=== PATIENT | male | born 1965 | race African-American/Black ===

== ENCOUNTER 2018-05-15 14:58 | Emergency (ER) | payer SELFPAY ==
[~2018-05-15] VITALS: Ht 170.2 cm; Wt 79.2 kg
[2018-05-15] MEDS ORDERED: ULTRAM50 M1 PO (17:21)
[2018-05-15] MEDS ORDERED: FLEXERIL PO (17:21)
[2018-05-15 17:24] VITALS: BP 149/89
== END 2018-05-15 17:32 | disposition home or self-care (01) | DRG 552 ==
LOC: ED 14:58
DX: M51.9 Unspecified thoracic, thoracolumbar and lumbosacral intervertebral disc disorder (principal); F17.210 Nicotine dependence, cigarettes, uncomplicated

== ENCOUNTER 2018-10-08 12:25 | Emergency (ER) | payer SELFPAY ==
[~2018-10-08] VITALS: Ht 170.2 cm; Wt 85.0 kg
[~2018-10-08 12:25] MED LIST: FLEXERIL PO; ULTRAM50 M1 PO
[2018-10-08 13:31] LABS: URINE BILIRUBIN - DIPSTICK NEGATIVE (NEGATIVE); URINE BLOOD DIPSTICK LARGE (NEGATIVE); URINE COLOR YELLOW; URINE GLUCOSE - DIPSTICK NEGATIVE (NEGATIVE); URINE KETONE NEGATIVE (NEGATIVE); URINE LEUK ESTERASE NEGATIVE (NEGATIVE); URINE NITRITE - DIPSTICK NEGATIVE (Negative); URINE PROTEIN - DIPSTICK NEGATIVE (NEG-TRACE); URINE UROBILINOGEN - DIPSTICK 0.2 E.U./dL (0.2)
[2018-10-08 13:52] VITALS: BP 154/106
== END 2018-10-08 13:52 | disposition home or self-care (01) | DRG 696 ==
LOC: ED 12:25
PROVIDERS: Family Medicine
DX: R31.9 Hematuria, unspecified (principal); F17.210 Nicotine dependence, cigarettes, uncomplicated

== ENCOUNTER 2019-04-15 10:25 | Emergency (ER) | payer BC ==
[~2019-04-15] VITALS: Ht 170.2 cm; Wt 90.0 kg
[2019-04-15] MEDS ORDERED: CYCLOBENZAPR5 MG PO (11:05)
[2019-04-15 11:11] VITALS: BP 136/88
== END 2019-04-15 11:18 | disposition home or self-care (01) | DRG 563 ==
LOC: ED 10:25
DX: S39.012A Strain of muscle, fascia and tendon of lower back, initial encounter (principal); F17.200 Nicotine dependence, unspecified, uncomplicated; X58.XXXA Exposure to other specified factors, initial encounter

== ENCOUNTER 2019-07-28 12:53 | Emergency (ER) | payer BC ==
[~2019-07-28] VITALS: Ht 170.2 cm; Wt 80.0 kg
[~2019-07-28 12:53] MED LIST changes: +CYCLOBENZAPR5 MG PO
[2019-07-28 14:46] VITALS: BP 141/83
== END 2019-07-28 14:56 | disposition home or self-care (01) | DRG 204 ==
LOC: ED 12:53
DX: R07.81 Pleurodynia (principal); G89.29 Other chronic pain; M54.9 Dorsalgia, unspecified; I10 Essential (primary) hypertension; F17.200 Nicotine dependence, unspecified, uncomplicated

== ENCOUNTER 2020-05-17 08:44 | Emergency (ER) | payer SELFPAY ==
[~2020-05-17] VITALS: Ht 170.2 cm; Wt 200.0 kg
[2020-05-17 09:36] VITALS: BP 143/92
== END 2020-05-17 09:40 | disposition home or self-care (01) | DRG 951 ==
LOC: ED 08:44
DX: Z03.89 Encounter for observation for other suspected diseases and conditions ruled out (principal); I10 Essential (primary) hypertension; F17.210 Nicotine dependence, cigarettes, uncomplicated

== ENCOUNTER 2020-08-06 10:40 | Emergency (ER) | payer MEDICAID ==
[~2020-08-06] VITALS: Ht 170.2 cm; Wt 86.0 kg
[2020-08-06] MEDS ORDERED: IBUPROFEN600 MG PO (13:13)
[2020-08-06 13:15] VITALS: BP 138/89
== END 2020-08-06 13:15 | disposition home or self-care (01) ==
LOC: ED 10:40
DX: M77.31 Calcaneal spur, right foot (principal); I10 Essential (primary) hypertension; F31.9 Bipolar disorder, unspecified; F17.210 Nicotine dependence, cigarettes, uncomplicated

== ENCOUNTER 2020-09-05 12:22 | Emergency (ER) | payer OTHER ==
[~2020-09-05] VITALS: Ht 170.2 cm; Wt 77.3 kg
[~2020-09-05 12:22] MED LIST changes: +IBUPROFEN600 MG PO
[2020-09-05] MEDS ORDERED: AMOX/K CLAV875 M1 PO (14:27)
[2020-09-05] MEDS ORDERED: IBUPROFEN600 MG PO (14:27)
[2020-09-05 14:45] VITALS: BP 142/93
[2020-09-05] MEDS ORDERED: LISINOPRIL10 MG PO (14:48)
== END 2020-09-05 14:45 | disposition home or self-care (01) ==
LOC: ED 12:22
DX: K08.89 Other specified disorders of teeth and supporting structures (principal); I10 Essential (primary) hypertension; F17.210 Nicotine dependence, cigarettes, uncomplicated

== ENCOUNTER 2022-03-07 11:35 | Emergency (ER) | payer OTHER ==
[~2022-03-07] VITALS: Ht 170.2 cm; Wt 97.7 kg
[~2022-03-07 11:35] MED LIST changes: +AMOX/K CLAV875 M1 PO; +LISINOPRIL10 MG PO
[2022-03-07 12:03] VITALS: BP 135/88
[2022-03-07 12:16] VITALS: BP 176/115
[2022-03-07] MEDS ORDERED: METOPROL TAR25 MG PO (12:17)
[2022-03-07] MEDS ORDERED: NAPROXEN500 MG PO (13:59)
[2022-03-07] MEDS ORDERED: FLEXERIL5 M1 PO (13:59)
[2022-03-07 14:17] VITALS: BP 176/115
== END 2022-03-07 14:35 | disposition home or self-care (01) | DRG 563 ==
LOC: ED 11:35
DX: S39.012A Strain of muscle, fascia and tendon of lower back, initial encounter (principal); V43.62XA Car passenger injured in collision with other type car in traffic accident, initial encounter; Y92.524 Gas station as the place of occurrence of the external cause; I10 Essential (primary) hypertension

== ENCOUNTER 2022-09-07 17:04 | Observation (INO) | payer MEDICARE, OTHER ==
[~2022-09-07] VITALS: Ht 170.2 cm; Wt 88.2 kg
[~2022-09-07 17:04] MED LIST changes: +FLEXERIL5 M1 PO; +METOPROL TAR25 MG PO; +NAPROXEN500 MG PO
[2022-09-07 17:12] VITALS: BP 165/99
[2022-09-07 17:27] LABS: HEMATOCRIT 43.5 % (39.0-50.0); HEMOGLOBIN 14.8 g/dl (14.0-18.0); IMMATURE GRANULOCYTES 0.1 % (0.0-5.0); MEAN CELL VOLUME 90.8 fL CALC (80.0-100.0); MEAN CORPUSCULAR HGB 30.9 pG CALC (26.0-32.0); NEUT# 4.77 thou/uL (1.82-7.42); RED BLOOD COUNT 4.79 mill/uL (4.70-6.10); RED CELL DISTRI WIDTH 14.2 % (11.5-15.5)
[2022-09-07 17:30] VITALS: BP 141/100
[2022-09-07 17:41] LABS: ALBUMIN 4.2 g/dL (3.2-5.0); ALKALINE PHOSPHATASE 88 u/l (38-126); ANION GAP 10 (6-22 (CALC)); BILIRUBIN, TOTAL 0.5 mg/dL (0.0-1.4); BUN 12 mg/dL (9-20); BUN/CREATININE RATIO 11 (12-20 (CALC)); CARBON DIOXIDE 28 mmol/l (22-30); CHLORIDE 106 mmol/l (95-108); CREATININE 1.1 mg/dL (0.7-1.3); GFR FOR AFR.AMER. > 60 ML/MIN (>=60 (CALC)); GFR OTHER RACES > 60 ML/MIN (>=60 (CALC)); POTASSIUM 3.4 mmol/l (3.5-5.1); SGOT/AST 35 u/l (17-59); SODIUM 140 mmol/l (137-146); TOTAL PROTEIN 7.1 g/dL (6.3-8.2)
[2022-09-07 18:00] VITALS: BP 132/99
[2022-09-07 18:31] VITALS: BP 136/88
[2022-09-07 19:42] VITALS: BP 152/97
[2022-09-07 23:46] VITALS: BP 116/72
[2022-09-08] MEDS ORDERED: GABAPENTIN100 MG PO (00:50)
[2022-09-08] MEDS ORDERED: IBUPROFEN600 MG PO (00:51)
[2022-09-08 04:39] VITALS: BP 126/98
[2022-09-08 06:11] LABS: HEMATOCRIT 41.9 % (39.0-50.0); HEMOGLOBIN 14.1 g/dl (14.0-18.0); IMMATURE GRANULOCYTES 0.2 % (0.0-5.0); MEAN CELL VOLUME 91.3 fL CALC (80.0-100.0); MEAN CORPUSCULAR HGB 30.7 pG CALC (26.0-32.0); MEAN CORPUSCULAR HGB CONC 33.7 g/dL CAL (32.0-36.0); NEUT# 2.54 thou/uL (1.82-7.42); RED BLOOD COUNT 4.59 mill/uL (4.70-6.10); RED CELL DISTRI WIDTH 14.3 % (11.5-15.5)
[2022-09-08 06:23] LABS: ALBUMIN 3.3 g/dL (3.2-5.0); ALKALINE PHOSPHATASE 70 u/l (38-126); ANION GAP 7 (6-22 (CALC)); BILIRUBIN, TOTAL 0.4 mg/dL (0.0-1.4); BUN 10 mg/dL (9-20); BUN/CREATININE RATIO 10 (12-20 (CALC)); CARBON DIOXIDE 26 mmol/l (22-30); CHLORIDE 110 mmol/l (95-108); CREATININE 0.9 mg/dL (0.7-1.3); GFR FOR AFR.AMER. > 60 ML/MIN (>=60 (CALC)); GFR OTHER RACES > 60 ML/MIN (>=60 (CALC)); MAGNESIUM 2.2 mg/dL (1.6-2.3); POTASSIUM 3.9 mmol/l (3.5-5.1); SGOT/AST 21 u/l (17-59); SODIUM 140 mmol/l (137-146); TOTAL PROTEIN 5.8 g/dL (6.3-8.2)
[2022-09-08 07:01] VITALS: BP 123/75
[2022-09-08 10:23] VITALS: BP 113/77
== END 2022-09-08 14:11 | disposition home or self-care (01) ==
LOC: ED 17:04 → ED-I 18:06 → ED 18:18 → MS2 18:19
PROVIDERS: Family Medicine; ADMIT Internal Medicine; ATTEND Internal Medicine
DX: R07.9 Chest pain, unspecified (principal); I10 Essential (primary) hypertension; F31.9 Bipolar disorder, unspecified; F20.0 Paranoid schizophrenia; M51.36 Other intervertebral disc degeneration, lumbar region; F41.9 Anxiety disorder, unspecified; F17.210 Nicotine dependence, cigarettes, uncomplicated